=== PATIENT | female | born 2000 | race Two or more races ===

== ENCOUNTER → 2022-05-12 | Emergency (ER) | payer OTHER | END | disposition left against medical advice (07) | LOC: ER 07:33 | DX: Z53.21 Procedure and treatment not carried out due to patient leaving prior to being seen by health care provider (principal) ==

== ENCOUNTER 2024-11-11 09:41 | Outpatient (CLI) | payer OTHER | END 2024-11-11 09:47 | disposition home or self-care (01) | LOC: TOM 09:41 | PROVIDERS: ATTEND Obstetrics & Gynecology Reproductive Endocrinology | DX: N94.6 Dysmenorrhea, unspecified (principal) ==